=== PATIENT | female | born 1980 | race Caucasian/White ===

== ENCOUNTER 2016-10-18 08:46 | Emergency (ER) | payer MEDICAID ==
[~2016-10-18] VITALS: Wt 72.5 kg
[~2016-10-18 08:46] MED LIST: CALC500T99 PO; CIPR500T4 PO; DOCU-144 PO; FER325 PO; HYDR-3498 PO; HYDR-906 PO; IBUP-1542 PO; IBUP400T22 PO; METO-448 PO; ONDA4TAB14 PO; PRENAT PO
[2016-10-18] MEDS ORDERED: METF500T3 PO (09:22)
[2016-10-18] MEDS ORDERED: METO25TA7 PO (09:23)
[2016-10-18] MEDS ORDERED: KETOROLAC 30 MG INJ IV STA (09:24)
[2016-10-18] MEDS ORDERED: LABETALOL HCL 20MG INJ IV ONE (09:30)
[2016-10-18 10:00] LABS: ADD SCAN DIFF NO
--- NOTE | 2016-10-18 10:02 | RADRPT ---
PROCEDURE: XR CHEST AP PORTABLE CLINICAL INDICATION: Shortness of breath TECHNIQUE: Single frontal view of the chest COMPARISON: None. FINDINGS: The cardiomediastinal silhouette and pulmonary vasculature are normal. The lungs are clear. No consolidation, effusion, or pneumothorax. The osseous structures are unremarkable. IMPRESSION: No acute cardiopulmonary process. RPTAT:PP .Cedric Heath MD, MD Date Time Electronically viewed and signed by .Cedric Heath MD, on 10/18/2016 10:02 .V/
[2016-10-18 10:08] LABS: BASOPHILS % 0.3 % (0.0-2.0); EOSINOPHILS % 0.3 % (0.0-7.0); HEMATOCRIT 41.2 % (37.0-47.0); HEMOGLOBIN 13.9 g/dl (12.0-16.0); LYMPHOCYTES # 2.1 10^3/ul (0.8-2.9); MEAN CORPUSCULAR HEMOGLOBIN 29.3 pg (29.0-33.0); MEAN CORPUSCULAR HGB CONC 33.7 g/dl (32.0-37.0); MEAN CORPUSCULAR VOLUME 86.9 fl (82.0-101.0); MEAN PLATELET VOLUME 11.9 fl (7.4-10.4); MONOCYTE # 0.5 10^3/ul (0.3-0.9); MONOCYTES % 4.7 % (0.0-11.0); NEUTROPHIL # 8.8 10^3/ul (1.6-7.5); NEUTROPHILS % 76.2 % (39.0-77.0); PLATELET COUNT 342 10^3/UL (140-415); RED BLOOD COUNT 4.74 10^6/ul (4.20-5.40); RED CELL DISTRIBUTION WIDTH 12.7 % (11.5-14.5); WHITE BLOOD COUNT 11.5 10^3/ul (4.8-10.8)
[2016-10-18 10:19] LABS: ANION GAP 13 (8-16); BLOOD UREA NITROGEN 12 mg/dl (7-20); CALCIUM 9.6 mg/dl (8.4-10.2); CARBON DIOXIDE 23 mmol/L (21-31); CHLORIDE 104 mmol/L (97-110); CREATININE 0.45 mg/dl (0.44-1.00); GLUCOSE 151 mg/dl (70-220); SODIUM 136 mmol/L (135-144)
[2016-10-18 10:32] LABS: TROPONIN-I < 0.012 ng/ml (0.00-0.12)
[2016-10-18 10:49] VITALS: BP 146/84; PULSE 78; RESP 18
[2016-10-18] MEDS ORDERED: IBUP-1542 PO (10:54)
--- NOTE | 2016-10-18 10:55 | ERD ---
ER Documentation Chief Complaint Date/Time DATE: 10/18/16 TIME: 10:55 Chief Complaint SOB AND CHEST TIGHTNESS WITH HIGH BP SINCE YESTERDAY. NO NEURO DEF HPI Patient is a 36-year-old female with hypertension who presents saying "I think it is my blood pressure". She woke up in the middle the night and felt like she was having chest pain and felt "my heart was beating fast". She felt like her hands were shaking bilaterally. She took her blood pressure and it was 174/ 114. She took her blood pressure medicines. She felt short of breath as well. Upon review of old medical records the patient has multiple visits to the ER for various complaints. Her primary doctor is Dr. Newby. ROS All systems reviewed and are negative except as per history of present illness. Medications Home Meds Active Scripts Ibuprofen* (Motrin*) 600 Mg Tab, 600 MG PO Q8, #30 TAB Prov:VANDANA KHAN MD 10/18/16 Ondansetron (Ondansetron Odt) 4 Mg Tab.rapdis, 4 MG PO Q6H Y for NAUSEA AND/OR VOMITING, #10 TAB Prov:PARIS MALONE DO 03/03/16 Reported Medications Metoprolol Succinate* (Toprol XL*) 25 Mg Tab.sr.24h, 25 MG PO DAILY, #30 TAB 10/18/16 Metformin Hcl* (Metformin Hcl* ER) 500 Mg Tab.sr.24h, 500 MG PO DAILY, #30 TAB 10/18/16 Discontinued Reported Medications Docusate Sodium* (Colace*) 100 Mg Capsule, 100 MG PO DAILY, #30 CAP 08/07/15 Ferrous Sulfate* (Ferrous Sulfate*) 325 Mg Tabec, 325 MG PO DAILY, TAB 08/07/15 Calcium Carbonate ([id number]) 1 Tab Tablet, 1 TAB PO DAILY, TAB 08/07/15 Multivit/Min/Fol Ac/Iron/Pren* ( S*) 1 Tab Tab, 1 TAB PO DAILY, TAB 08/07/15 Discontinued Scripts Ibuprofen* (Motrin*) 400 Mg Tab, 400 MG PO Q8, #15 TAB Prov:PARIS MALONE DO 03/03/16 Hydrocodone/Acetaminophen ([place] 5-325 Tablet) 1 Each Tablet, 1 TAB PO Q6H Y for PAIN, #15 TAB Prov:PARIS MALONE DO 03/03/16 Ibuprofen* (Motrin*) 600 Mg Tab, 600 MG PO Q6, #20 TAB Prov:KWESI GRIFFITH MD 02/16/16 Ibuprofen* (Ibuprofen*) 400 Mg Tablet, 400 MG PO Q6H Y for PAIN, #30 TAB Prov:JONNY BATES MD 08/17/15 Hydrocodone Bit/Acetaminophen (Anexsia 5-325 Mg Tablet) 1 Tab Tab, 1 TAB PO Q4H Y for for pain, #1 TAB Prov:JONNY BATES MD 08/17/15 Ciprofloxacin Hcl* (Ciprofloxacin Hcl*) 500 Mg Tablet, 500 MG PO BID, #20 TAB Prov:JONNY BATES MD 08/17/15 Metoprolol Tartrate* (Lopressor*) 25 Mg Tab, 25 MG PO BID, #60 TAB Prov:JONNY BATES MD 08/17/15 Allergies Allergies: Coded Allergies: No Known Allergies (Verified Allergy, Unknown, 07/29/15) PMhx/Soc History of Surgery: Yes (appendectomy) Anesthesia Reaction: No Hx Neurological Disorder: No Hx Respiratory Disorders: Yes (bronchitis) Hx Cardiac Disorders: Yes (hypertension) Hx Psychiatric Problems: No Hx Miscellaneous Medical Probl: Yes (gestational diabetes, hernia) Hx Alcohol Use: No Hx Substance Use: No Hx Tobacco Use: No Smoking Status: Never smoker FmHx Family History: No coronary disease Physical Exam Vitals Vital Signs Date Time Temp Pulse Resp B/P Pulse Ox O2 Delivery O2 Flow Rate FiO2 10/18/16 10:49 78 18 146/84 98 Room Air 10/18/16 09:49 84 18 147/81 98 Room Air 10/18/16 09:18 90 22 156/110 98 Room Air 10/18/16 08:50 98.8 109 22 186/98 98 Physical Exam Const: No acute distress Head: Atraumatic Eyes: Normal Conjunctiva ENT: Normal External Ears, Nose and Mouth. Neck: Full range of motion..~ No meningismus. Resp: Clear to auscultation bilaterally Cardio: Regular rate and rhythm, no murmurs Abd: Soft, non tender, non distended. Normal bowel sounds Skin: No petechiae or rashes Back: No midline or flank tenderness Ext: No cyanosis, or edema Neur: Awake and alert Psych: Anxious Result Diagram: 10/18/1650 10/18/1650 Results 24 hrs Laboratory Tests Test 10/18/16 09:50 White Blood Count 11.510^3/ul Red Blood Count 4.7410^6/ul Hemoglobin 13.9g/dl Hematocrit 41.2% Mean Corpuscular Volume 86.9fl Mean Corpuscular Hemoglobin 29.3pg Mean Corpuscular Hemoglobin Concent 33.7g/dl Red Cell Distribution Width 12.7% Platelet Count 92915^3/UL Mean Platelet Volume 11.9fl Neutrophils % 76.2% Lymphocytes % 18.0% Monocytes % 4.7% Eosinophils % 0.3% Basophils % 0.3% Nucleated Red Blood Cells % 0.0/100WBC Neutrophils # 8.810^3/ul Lymphocytes # 2.110^3/ul Monocytes # 0.510^3/ul Eosinophils # 0.010^3/ul Basophils # 0.010^3/ul Nucleated Red Blood Cells # 0.010^3/ul Sodium Level 136mmol/L Potassium Level 4.0mmol/L Chloride Level 104mmol/L Carbon Dioxide Level 23mmol/L Anion Gap 13 Blood Urea Nitrogen 12mg/dl Creatinine 0.45mg/dl Glucose Level 151mg/dl Calcium Level 9.6mg/dl Troponin I < 0.012ng/ml Current Medications Medications (Trade) Dose Ordered Sig/Jessica Route PRN Reason Start Time Stop Time Status Last Admin Dose Admin Labetalol HCl (Labetalol) 20 mg ONCE ONCE IV 10/18/16 09:30 10/18/16 09:31 DC 10/18/16 09:27 Ketorolac Tromethamine (Toradol) 30 mg ONCE STAT IV 10/18/16 09:24 10/18/16 09:25 DC 10/18/16 09:26 Procedures/MDM EKG read by me: Rate/Rhythm: Regular rate and rhythm at a rate of 86 Intervals: Normal Impression: No evidence of ischemia or arrhythmia Chest x-ray negative per radiology. Patient is a 28-year-old female presents with chest pain and shortness of breath. Her only risk factor for acute coronary syndrome would be hypertension. She is otherwise well-appearing. Her EKG shows no signs of ischemia or arrhythmia. Chest x-ray shows no pneumonia or pneumothorax. Troponin was negative. At this point I doubt acute coronary syndrome, pneumonia , pneumothorax, pulmonary embolism, or aortic dissection. The patient was treated for high blood pressure with Cardene. She will be discharged home but will need close follow-up with her primary doctor within 24-48 hours. She can return sooner for any worsening symptoms. The patient understands the plan and is okay for discharge at this time. She was provided with a copy of her laboratory studies and x-ray report prior to discharge. Departure Diagnosis: Primary Impression: Hypertension Hypertension type: essential hypertension Qualified Code: I10 - Essential hypertension Additional Impressions: Shortness of breath Chest pain Chest pain type: unspecified Qualified Code: R07.9 - Chest pain, unspecified type Patient Instructions: High Blood Pressure (Hypertension), Chest Pain, Uncertain Cause Additional Instructions: Call your primary care doctor TOMORROW for an appointment during the next 1-2 days.See the doctor sooner or return here if your condition worsens before your appointment time. VANDANA KHAN MD October 18, 2016 10:55
== END 2016-10-18 11:03 | disposition home or self-care (01) ==
LOC: E/R 08:46
DX: I10 Essential (primary) hypertension (principal); R07.9 Chest pain, unspecified
CPT/HCPCS: 36415; 71010; 80048; 84484; 85025; 93005; 96374; 96375; J1885; Z7502; Z7610

== ENCOUNTER 2017-01-20 13:31 | Emergency (ER) | payer MEDICAID ==
[~2017-01-20] VITALS: Ht 157.5 cm; Wt 72.5 kg
[~2017-01-20 13:31] MED LIST changes: -CALC500T99 PO; -CIPR500T4 PO; -DOCU-144 PO; -FER325 PO; -HYDR-3498 PO; -HYDR-906 PO; -IBUP400T22 PO; +METF500T3 PO; -METO-448 PO; +METO25TA7 PO; -PRENAT PO
[2017-01-20 13:34] VITALS: Ht 157.5 cm; Wt 72.5 kg
[2017-01-20] MEDS ORDERED: LIDOCAINE/MYLANTA 40 ML BTL PO STA (14:47)
[2017-01-20] MEDS ORDERED: BELLADONNA/PHENOBARBITAL TAB PO STA (14:47)
--- NOTE | 2017-01-20 14:59 | ERD ---
ER Documentation Chief Complaint Date/Time DATE: 01/20/17 TIME: 14:54 Chief Complaint Complains of abdominal pain since Monday HPI Patient is a 28-year-old female with past medical history of gallstones, s/p appendectomy who presents to the emergency department for concerns of epigastric pain and bilateral lower quadrant pain 3 days. Patient states that she feels as if there is pain from her lower abdomen going up. Patient states she does feel "gaseous". Patient does admit to eating spicy and fried foods as well as taking NSAIDs. Denies any chest pain, shortness of breath, nausea, vomiting, left upper extremity pain or diaphoresis. Patient states she did initially feel constipated and not have a bowel movement for over 3 days. Patient states she took stool softeners as well as prune juice which did help her have a bowel movement earlier today. She does also report dysuria and urinary frequency. She denies any flank pain, hematuria, fever, chills. No recent travel. No sick contacts. ROS All systems reviewed and are negative except as per history of present illness. Medications Home Meds Active Scripts Nitrofurantoin Monohyd Macrocr* (Macrobid*) 100 Mg Capsr, 100 MG PO BID for 5 Days, CAP Prov:NESHA MATHEW PA-C 01/20/17 Ondansetron (Ondansetron Odt) 4 Mg Tab.rapdis, 4 MG PO Q6H Y for NAUSEA AND/OR VOMITING, #10 TAB Prov:NESHA MATHEW PA-C 01/20/17 Famotidine* (Pepcid*) 20 Mg Tablet, 20 MG PO BID for 30 Days, TAB Prov:NESHA MATHEW PA-C 01/20/17 Ibuprofen* (Motrin*) 600 Mg Tab, 600 MG PO Q8, #30 TAB Prov:VANDANA KHAN MD 10/18/16 Ondansetron (Ondansetron Odt) 4 Mg Tab.rapdis, 4 MG PO Q6H Y for NAUSEA AND/OR VOMITING, #10 TAB Prov:PARIS MALONE DO 03/03/16 Reported Medications Metoprolol Succinate* (Toprol XL*) 25 Mg Tab.sr.24h, 25 MG PO DAILY, #30 TAB 10/18/16 Metformin Hcl* (Metformin Hcl* ER) 500 Mg Tab.sr.24h, 500 MG PO DAILY, #30 TAB 10/18/16 Allergies Allergies: Coded Allergies: No Known Allergies (Verified Allergy, Unknown, 07/29/15) PMhx/Soc History of Surgery: Yes (appendectomy, 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 Appears in no acute distress. Speaking in full sentences HEAD: Normocephalic, atraumatic. EYES: Pupils are equally reactive bilaterally. EOMs grossly intact. No conjunctival erythema. ENT: Moist mucous membranes. No uvula deviation. No kissing tonsils. NECK: Supple. No meningismus. Normal range of motion of the neck. LUNG: Clear to auscultation bilaterally. No rhonchi, wheezing, rales or coarse breath sounds. HEART: Regular rate and rhythm. No murmurs, rubs or gallops. ABDOMEN:Soft and nondistended. Tender to palpation in the epigastric region, bilateral lower quadrants and suprapubic region. Appendectomy surgical scar noted in right lower quadrant. Positive bowel sounds in all four quadrants. No rebound tenderness, no guarding. (-) McBurney's point tenderness. No CVA tenderness. EXTREMITIES: Equal pulses bilaterally. No peripheral clubbing, cyanosis or edema. No unilateral leg swelling. NEUROLOGIC: Alert and oriented. Moving all four extremities without any difficulty. Normal speech. Steady gait. SKIN: Normal color. Warm and dry. No rashes or lesions. Result Diagram: 01/20/17 1500 01/20/17 1500 Results 24 hrs Laboratory Tests Test 01/20/17 14:40 01/20/17 15:00 Urine Color YELLOW Urine Clarity CLEAR Urine pH 6.0 Urine Specific [place] 1.020 Urine Ketones NEGATIVEmg/dL Urine Nitrite NEGATIVEmg/dL Urine Bilirubin NEGATIVEmg/dL Urine Urobilinogen NEGATIVEmg/dL Urine Leukocyte Esterase 1+Arlyn/ul Urine Microscopic RBC 1/HPF Urine Microscopic WBC 2/HPF Urine Squamous Epithelial Cells FEW/HPF Urine Bacteria FEW/HPF Urine Hemoglobin NEGATIVEmg/dL Urine Glucose NEGATIVEmg/dL Urine Total Protein NEGATIVEmg/dl White Blood Count 9.310^3/ul Red Blood Count 4.3910^6/ul Hemoglobin 12.6g/dl Hematocrit 38.7% Mean Corpuscular Volume 88.2fl Mean Corpuscular Hemoglobin 28.7pg Mean Corpuscular Hemoglobin Concent 32.6g/dl Red Cell Distribution Width 12.9% Platelet Count 20923^3/UL Mean Platelet Volume 11.1fl Neutrophils % 59.6% Lymphocytes % 27.7% Monocytes % 8.8% Eosinophils % 3.4% Basophils % 0.2% Nucleated Red Blood Cells % 0.0/100WBC Neutrophils # 5.510^3/ul Lymphocytes # 2.610^3/ul Monocytes # 0.810^3/ul Eosinophils # 0.310^3/ul Basophils # 0.010^3/ul Nucleated Red Blood Cells # 0.010^3/ul Sodium Level 141mmol/L Potassium Level 4.3mmol/L Chloride Level 99mmol/L Carbon Dioxide Level 27mmol/L Anion Gap 19 Blood Urea Nitrogen 12mg/dl Creatinine 0.52mg/dl Glucose Level 100mg/dl Calcium Level 9.3mg/dl Total Bilirubin 0.2mg/dl Direct Bilirubin 0.00mg/dl Indirect Bilirubin 0.2mg/dl Aspartate Amino Transf (AST/SGOT) 19IU/L Alanine Aminotransferase (ALT/SGPT) 28IU/L Alkaline Phosphatase 110IU/L Troponin I < 0.012ng/ml Total Protein 7.8g/dl Albumin 4.4g/dl Globulin 3.40g/dl Albumin/Globulin Ratio 1.29 Lipase 71U/L Current Medications Medications (Trade) Dose Ordered Sig/Jessica Route PRN Reason Start Time Stop Time Status Last Admin Dose Admin Miscellaneous Medication (Gi Cocktail (2)) 40 ml ONCE STAT PO 01/20/17 14:47 01/20/17 14:48 DC 01/20/17 15:04 Belladonna/ Phenobarbital () 2 tab ONCE STAT PO 01/20/17 14:47 01/20/17 14:48 DC 01/20/17 15:04 Procedures/MDM ED COURSE: The patient was stable throughout ED course. I kept the patient and/or family informed of laboratory and diagnostic imaging results throughout the ED course. DIAGNOSTIC IMAGING: Read by radiologist. DIAGNOSTIC IMAGING REPORT Patient: VASU ZELAYA : 1980 Age: 36 Sex: F MR #: [id number] DOS: 01/20/17 1447 Ordering MD: NESHA MATHEW PA-C Location: [facility] Room/Bed: PROCEDURE: US Abdomen (right upper quadrant). CLINICAL INDICATION: Right upper quadrant pain TECHNIQUE: Multiple real-time longitudinal and transverse images of the right upper quadrant of the abdomen were acquired utilizing a curved array transducer. Images were reviewed on a high-resolution PACS workstation. COMPARISON: Abdominal ultrasound 03/03/2016 FINDINGS: The liver is normal in size and echogenicity without focal mass or intrahepatic biliary dilatation. The liver measures 13.4 cm at the right midclavicular line. There is normal hepatopedal flow within the main portal vein. The main portal vein velocity measures 21 cm/sec. The gallbladder is again seen to contain multiple shadowing gallstones. The gallbladder wall is minimally thickened, measuring approximately 3 mm in thickness (previously approximate 2.2 mm). No pericholecystic fluid is seen. No intra or extrahepatic biliary dilatation is seen. The common bile duct measures 2.7 mm at the pepe. The visualized portions of the pancreas are unremarkable with obscuration of the tail of the pancreas. No free fluid is identified. The right kidney measures 10.4 cm in length. There is normal echogenicity within the right kidney. Blood flow is demonstrated to the right kidney by color Doppler. There is no right perinephric fluid collection. No hydronephrosis, mass, or shadow calculus is seen on the right. IMPRESSION: Cholelithiasis with minimal gallbladder wall thickening, not significantly changed compared to 03/03/2016. RPTAT: QQ Physician Donna Date Time Electronically viewed and signed by Physician Donna on 01/20/2017 16: 05 RC/ CC: NESHA MATHEW PA-C MEDICATIONS GIVEN: GI cocktail Patient tolerated medication well with no adverse reactions. Patient reported improvement in pain. MEDICAL DECISION MAKING: This is a 36 year-old female presents emergency department with concerns of epigastric pain, increased gassiness, bilateral lower quadrant pain and dysuria 3 days. Vital signs were reviewed. Patient is afebrile. CBC showed no evidence of systemic infection or severe anemia. CMP showed no evidence of electrolyte abnormalities, severe acidosis, alkalosis, renal failure, or liver disease.Lipase showed no evidence of acute pancreatitis. Urine test was negative. Urine analysis showed 1+ leukocyte esterase. Gallbladder ultrasound showed cholelithiasis with minimal gallbladder wall thickening, not significantly changed compared to 03-03-2016. Patient did report significant improvement in her pain after receiving the GI cocktail. Patient understands I am unable to rule out any ulcers at this time. At this time patient presentation is most consistent with epigastric pain, cholelithiasis and UTI. Low suspicion for ACS, AAA, mesenteric ischemia, lower lobe pneumonia, DKA, bowel perforation, bowel obstruction, cholecystitis, choledocholithiasis, ascending cholangitis, pancreatitis, splenic rupture, diverticulitis, pyelonephritis, nephrolithiasis, appendicitis, constipation, , ectopic . PRESCRIPTIONS: Pepcid, Macrobid DISCHARGE: At this time, patient is stable for discharge and outpatient management. She was provided with a copy of all imaging and blood work obtained today. Surgery referral information provided for elective cholecystectomy if the patient's pain persists. I have instructed the patient to follow-up with his/her primary care physician in 1-2 days. I have instructed the patient to promptly return to the ER at any time for any new or worsening symptoms including increased pain, nausea, vomiting, diarrhea, fever, weakness or LOC. The patient and/or family expressed understanding of and agreement with this plan. All questions were answered. Home care instructions were provided. Patients blood pressure was elevated (>120/80) but appears stable without evidence of hypertensive emergency, hypertensive urgency or end-organ failure. I had discussion with the patient about the risks of hypertension. I have advised the patient to follow up with his/her primary care physician for outpatient monitoring and treatment for hypertension in 2-3 days. I have instructed the patient to return to the ER for any new or worsening symptoms including chest pain, shortness of breath, headache, blurred vision, confusion, nausea, vomiting or LOC. Disclaimer: Inadvertent spelling and grammatical errors are likely due to EHR/ dictation software use and do not reflect on the overall quality of patient care. Also, please note that the electronic time recorded on this note does not necessarily reflect the actual time of the patient encounter. Departure Diagnosis: Primary Impression: Epigastric pain Additional Impressions: Cholelithiasis Cholelithiasis location: other site Biliary obstruction: without biliary obstruction Qualified Code: K80.80 - Biliary calculus of other site without obstruction UTI (urinary tract infection) Urinary tract infection type: site unspecified Hematuria presence: without hematuria Qualified Code: N39.0 - Urinary tract infection without hematuria, site unspecified Condition: Stable Patient Instructions: Epigastric Pain (Uncertain Cause) Referrals: MARLENE VALENZUELA MD (PCP) Julian MACARIO PHILIP MD DEL JUNCO, TIRSO MD FARID,CHELSEA CALVILLO,ERICKA GARBER MD, M.D. [facility] MOLDING LINE ASSISTANT REFERRAL LIST Additional Instructions: Call your primary care doctor TOMORROW for an appointment during the next 1-2 days.See the doctor sooner or return here if your condition worsens before your appointment time. Follow-up with a general surgeon for your ongoing gallstones. You may need gallbladder removal surgery if your pain persists. NESHA MATHEW PA-C Jan 20, 2017 14:59
[2017-01-20 15:23] LABS: BASOPHILS % 0.2 % (0.0-2.0); EOSINOPHILS # 0.3 10^3/ul (0.0-0.5); EOSINOPHILS % 3.4 % (0.0-7.0); HEMATOCRIT 38.7 % (37.0-47.0); HEMOGLOBIN 12.6 g/dl (12.0-16.0); LYMPHOCYTES # 2.6 10^3/ul (0.8-2.9); LYMPHOCYTES % 27.7 % (15.0-51.0); MEAN CORPUSCULAR HEMOGLOBIN 28.7 pg (29.0-33.0); MEAN CORPUSCULAR HGB CONC 32.6 g/dl (32.0-37.0); MEAN CORPUSCULAR VOLUME 88.2 fl (82.0-101.0); MEAN PLATELET VOLUME 11.1 fl (7.4-10.4); MONOCYTE # 0.8 10^3/ul (0.3-0.9); MONOCYTES % 8.8 % (0.0-11.0); NEUTROPHIL # 5.5 10^3/ul (1.6-7.5); NEUTROPHILS % 59.6 % (39.0-77.0); PLATELET COUNT 323 10^3/UL (140-415); RED BLOOD COUNT 4.39 10^6/ul (4.20-5.40); RED CELL DISTRIBUTION WIDTH 12.9 % (11.5-14.5); WHITE BLOOD COUNT 9.3 10^3/ul (4.8-10.8)
[2017-01-20 15:33] LABS: ADD UMIC YES; UR ASCORBIC ACID 40 mg/dL (NEGATIVE); UR BACTERIA FEW /HPF (NONE SEEN); UR BILIRUBIN (Dip) NEGATIVE (NEGATIVE); UR BLOOD (Dip) NEGATIVE (NEGATIVE); UR CLARITY CLEAR (CLEAR); UR COLOR YELLOW (YELLOW); UR GLUCOSE (Dip) NEGATIVE (NEGATIVE); UR KETONES (Dip) NEGATIVE (NEGATIVE); UR LEUKOCYTE ESTERASE (Dip) 1+ Leu/ul (NEGATIVE); UR NITRITE (Dip) NEGATIVE (NEGATIVE); UR RBC 1 /HPF (0-5); UR SQUAMOUS EPITHELIAL CELL FEW /HPF (FEW); UR TOTAL PROTEIN (Dip) NEGATIVE (NEGATIVE); UR UROBILINOGEN (Dip) NEGATIVE (NEGATIVE)
[2017-01-20 15:47] LABS: ALANINE AMINOTRANSFERASE 28 IU/L (13-69); ALBUMIN 4.4 g/dl (3.3-4.9); ALBUMIN/GLOBULIN RATIO 1.29; ALKALINE PHOSPHATASE 110 IU/L (42-121); ANION GAP 19 (8-16); ASPARTATE AMINO TRANSFERASE 19 IU/L (15-46); BILIRUBIN,INDIRECT 0.2 mg/dl (0-1.1); BILIRUBIN,TOTAL 0.2 mg/dl (0.2-1.3); BLOOD UREA NITROGEN 12 mg/dl (7-20); CALCIUM 9.3 mg/dl (8.4-10.2); CARBON DIOXIDE 27 mmol/L (21-31); CHLORIDE 99 mmol/L (97-110); CREATININE 0.52 mg/dl (0.44-1.00); GLUCOSE 100 mg/dl (70-220); POTASSIUM 4.3 mmol/L (3.5-5.1); SODIUM 141 mmol/L (135-144); TOTAL PROTEIN 7.8 g/dl (6.1-8.1)
[2017-01-20 16:01] LABS: TROPONIN-I < 0.012 ng/ml (0.00-0.12)
--- NOTE | 2017-01-20 16:05 | RADRPT ---
PROCEDURE: US Abdomen (right upper quadrant). CLINICAL INDICATION: Right upper quadrant pain TECHNIQUE: Multiple real-time longitudinal and transverse images of the right upper quadrant of th e abdomen were acquired utilizing a curved array transducer. Images were reviewed on a high-resoluti on PACS workstation. COMPARISON: Abdominal ultrasound 03/03/2016 FINDINGS: The liver is normal in size and echogenicity without focal mass or intrahepatic biliary dilatation. The liver measures 13.4 cm at the right midclavicular line. There is normal hepatopedal flow within the main portal vein. The main portal vein velocity measures 21 cm/sec. The gallbladder is again seen to contain multiple shadowing gallstones. The gallbladder wall is mini pili thickened, measuring approximately 3 mm in thickness (previously approximate 2.2 mm). No peric holecystic fluid is seen. No intra or extrahepatic biliary dilatation is seen. The common bile gianna t measures 2.7 mm at the pepe. The visualized portions of the pancreas are unremarkable with obscuration of the tail of the pancrea s. No free fluid is identified. The right kidney measures 10.4 cm in length. There is normal echogenicity within the right kidney. Blood flow is demonstrated to the right kidney by color Doppler. There is no right perinephric fluid collection. No hydronephrosis, mass, or shadow calculus is seen on the right. IMPRESSION: Cholelithiasis with minimal gallbladder wall thickening, not significantly changed compared to 03/03. RPTAT: QQ Physician Donna Date Time Electronically viewed and signed by Physician Donna on 01/20/2017 16:05 PAULETTE/
[2017-01-20] MEDS ORDERED: FAMO-96 PO (16:33)
[2017-01-20] MEDS ORDERED: ONDA4TAB14 PO (16:34)
[2017-01-20] MEDS ORDERED: NITR-58 PO (16:34)
== END 2017-01-20 16:52 | disposition home or self-care (01) ==
LOC: FTE 13:31
DX: R10.13 Epigastric pain (principal); K80.80 Other cholelithiasis without obstruction; N39.0 Urinary tract infection, site not specified; I10 Essential (primary) hypertension; Z79.84 Long term (current) use of oral hypoglycemic drugs
CPT/HCPCS: 36415; 76705; 80053; 81001; 83690; 84484; 85025; Z7502; Z7610

== ENCOUNTER 2017-02-20 16:32 | Emergency (ER) | payer MEDICAID ==
[~2017-02-20] VITALS: Ht 165.1 cm; Wt 71.5 kg
[~2017-02-20 16:32] MED LIST changes: +FAMO-96 PO; +NITR-58 PO
[2017-02-20 16:47] VITALS: Ht 165.1 cm; Wt 71.5 kg
[2017-02-20] MEDS ORDERED: SOD CHLORIDE 0.9% 1,000 ML IV STA (17:15)
[2017-02-20] MEDS ORDERED: KETOROLAC 30 MG INJ IV STA (17:15)
[2017-02-20] MEDS ORDERED: ONDANSETRON 4 MG INJ IV STA (17:15)
--- NOTE | 2017-02-20 18:00 | RADRPT ---
PROCEDURE: US Pelvis CLINICAL INDICATION: right sided pelvic pain TECHNIQUE: Multiple sonographic images of the pelvis were obtained utilizing a transabdominal and endovaginal technique. The images were reviewed on a PACS workstation. COMPARISON: None. LMP: 01/20/2017 FINDINGS: The uterus measures 8.0 x 4.0 x 6.2 cm. The endometrial echo complex measures 15 mm in thickness. Several sub-centimeter Nabothian cysts are identified. The right ovary measures 3.5 x 2.6 x 2.6 cm. The left ovary measures 3.1 x 2.1 x 2.2 cm. There is no rmal vascular flow in both ovaries. There is a 1.1 cm mildly irregular cystic lesion in the right ovary with low level internal echoes w hich may be a ruptured hemorrhagic/corpus luteal cyst. There is trace pelvic free fluid. IMPRESSION: 1.1 cm mildly irregular complex cystic lesion in the right ovary may be a ruptured hemorrhagic/corpu s luteal cyst. Otherwise, unremarkable pelvic ultrasound. RPTAT: EE Physician Radha Date Time Electronically viewed and signed by Physician Radha on 02/20/2017 18:00 /
[2017-02-20 18:18] LABS: BASOPHILS % 0.3 % (0.0-2.0); EOSINOPHILS # 0.2 10^3/ul (0.0-0.5); EOSINOPHILS % 1.8 % (0.0-7.0); HEMATOCRIT 39.5 % (37.0-47.0); HEMOGLOBIN 12.9 g/dl (12.0-16.0); LYMPHOCYTES # 2.6 10^3/ul (0.8-2.9); LYMPHOCYTES % 20.4 % (15.0-51.0); MEAN CORPUSCULAR HEMOGLOBIN 28.5 pg (29.0-33.0); MEAN CORPUSCULAR HGB CONC 32.7 g/dl (32.0-37.0); MEAN CORPUSCULAR VOLUME 87.4 fl (82.0-101.0); MEAN PLATELET VOLUME 10.8 fl (7.4-10.4); MONOCYTE # 0.8 10^3/ul (0.3-0.9); MONOCYTES % 6.1 % (0.0-11.0); PLATELET COUNT 323 10^3/UL (140-415); RED BLOOD COUNT 4.52 10^6/ul (4.20-5.40); RED CELL DISTRIBUTION WIDTH 12.9 % (11.5-14.5); WHITE BLOOD COUNT 12.7 10^3/ul (4.8-10.8)
[2017-02-20 18:29] LABS: ADD UMIC YES; UR ASCORBIC ACID 40 mg/dL (NEGATIVE); UR BILIRUBIN (Dip) NEGATIVE (NEGATIVE); UR BLOOD (Dip) NEGATIVE (NEGATIVE); UR CLARITY SLIGHTLY CLOUDY (CLEAR); UR COLOR YELLOW (YELLOW); UR GLUCOSE (Dip) NEGATIVE (NEGATIVE); UR KETONES (Dip) NEGATIVE (NEGATIVE); UR LEUKOCYTE ESTERASE (Dip) TRACE Leu/ul (NEGATIVE); UR MUCUS FEW /HPF (NONE SEEN); UR NITRITE (Dip) NEGATIVE (NEGATIVE); UR RBC 5 /HPF (0-5); UR SPECIFIC GRAVITY (Dip) 1.021 (1.003-1.030); UR SQUAMOUS EPITHELIAL CELL FEW /HPF (FEW); UR TOTAL PROTEIN (Dip) 1+ mg/dl (NEGATIVE); UR UROBILINOGEN (Dip) NEGATIVE (NEGATIVE)
[2017-02-20 18:34] LABS: ALBUMIN 4.3 g/dl (3.3-4.9); ALBUMIN/GLOBULIN RATIO 1.38; BILIRUBIN,INDIRECT 0.3 mg/dl (0-1.1); BILIRUBIN,TOTAL 0.3 mg/dl (0.2-1.3); CALCIUM 10.2 mg/dl (8.4-10.2); CREATININE 0.52 mg/dl (0.44-1.00); POTASSIUM 3.8 mmol/L (3.5-5.1); TOTAL PROTEIN 7.4 g/dl (6.1-8.1)
--- NOTE | 2017-02-20 18:58 | RADRPT ---
PROCEDURE: CT abdomen and pelvis without IV contrast. CLINICAL INDICATION: Abdominal pain TECHNIQUE: CT scan of the abdomen and pelvis without contrast was performed on the General Specific volumetric [address] scanner. The patient was scanned without intravenous contrast. Coronal and sagittal refo rmatted images were obtained from the axial source images. The CTDI vol is 11.42 mGy and the DLP is 637.83 mGy-cm. One or more of the following dose reduction techniques were used: Automated exposure control. Adjustment of the mA and/or kV according to patient size. Use of iterative reconstruction technique. COMPARISON: 02/16/2016 FINDINGS: CT abdomen: The lung bases are clear. The heart size is not enlarged and is without pericardial thickening or e ffusion. The liver is normal in size and is without focal mass or intrahepatic biliary dilatation. Fatty infi ltration of the liver is seen. The spleen is normal in size and homogeneous in density. The stomach is grossly unremarkable. The pancreas as visualized is normal. Multiple gallstones are seen. No common bile duct dilatation is seen. The adrenal glands are symmetric and normal. The kidneys are s ymmetrically unremarkable as well. No renal calculus or obstructive uropathy or mass lesion is seen . The aorta is of normal in caliber. There is no retroperitoneal lymphadenopathy. The pepe hepatis region is clear. The large bowel is stool-filled. The small and large bowel and mesentery, as visua lized, are otherwise unremarkable. The normal appendix is identified. A right ventral hernia is once again seen which is fat containing and is stable in size. CT pelvis: The pelvic organs are normal. The pelvic sidewalls and inguinal regions are clear. No pelvic mass, lymphadenopathy, or free fluid is seen. No acute inflammation is seen. The urinary bladder is wit hin normal limits. The surrounding osseous structures are unremarkable. No osteolytic or osteoblastic lesion is detect ed. IMPRESSION: 1. No acute pathology in the abdomen and pelvis. 2. Cholelithiasis again seen. 3. Stool filled large bowel. 4. Fatty infiltration of the liver. RPTAT: HPNM Physician Kayli Date Time Electronically viewed and signed by Jigar Craig Physician on 02/20/2017 18:58 /
[2017-02-20] MEDS ORDERED: HYDR-906 PO (19:33)
--- NOTE | 2017-02-20 19:42 | ERD ---
ER Documentation Chief Complaint Date/Time DATE: 02/20/17 TIME: 19:37 Chief Complaint RT LOWER PELVIC PAIN RADIATING TO GROIN AND LEG TODAY, HAS A HERNIA HPI This is a 37-year-old female presents to the ER with right lower pelvic pain which radiates into her right groin and vagina. Patient states that she had an appendectomy a year and a half ago and soon after was diagnosed with a hernia. Patient states that pain is severe and constant and it is worse whenever she walks. Patient denies any nausea or vomiting. She denies any fevers or chills. She denies urinary frequency or dysuria. She denies any vaginal discharge. Patient tried taking Tylenol for her pain, however it did not work. ROS 12 point review of systems was done, all negative except per HPI. Medications Home Meds Active Scripts Hydrocodone/Acetaminophen ([place] 5-325 Tablet) 1 Each Tablet, 1 TAB PO Q6H Y for PAIN, #20 TAB Prov:JERICA MAJOR 02/20/17 Nitrofurantoin Monohyd Macrocr* (Macrobid*) 100 Mg Capsr, 100 MG PO BID for 5 Days, CAP Prov:NESHA MATHEW PA-C 01/20/17 Ondansetron (Ondansetron Odt) 4 Mg Tab.rapdis, 4 MG PO Q6H Y for NAUSEA AND/OR VOMITING, #10 TAB Prov:NESHA MATHEW PA-C 01/20/17 Famotidine* (Pepcid*) 20 Mg Tablet, 20 MG PO BID for 30 Days, TAB Prov:NESHA MATHEW PA-C 01/20/17 Ibuprofen* (Motrin*) 600 Mg Tab, 600 MG PO Q8, #30 TAB Prov:VANDANA KHAN MD 10/18/16 Ondansetron (Ondansetron Odt) 4 Mg Tab.rapdis, 4 MG PO Q6H Y for NAUSEA AND/OR VOMITING, #10 TAB Prov:PARIS MALONE DO 03/03/16 Reported Medications Metoprolol Succinate* (Toprol XL*) 25 Mg Tab.sr.24h, 25 MG PO DAILY, #30 TAB 10/18/16 Metformin Hcl* (Metformin Hcl* ER) 500 Mg Tab.sr.24h, 500 MG PO DAILY, #30 TAB 10/18/16 Allergies Allergies: Coded Allergies: No Known Allergies (Verified Allergy, Unknown, 07/29/15) PMhx/Soc History of Surgery: Yes (appendectomy, 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 HEENT: Atraumatic. CHEST: Clear to auscultation bilaterally. There are no rales, wheezes or rhonchi. HEART: Regular rate and rhythm. No murmurs, clicks, rubs or gallops. ABDOMEN: Soft, nontender and nondistended. Good bowel sounds. No rebound or guarding. No gross peritonitis. No gross organomegaly or masses. No Steward sign or McBurney point tenderness. Patient is tender to palpation pelvic region BACK: No midline or flank tenderness. NEURO: Alert and oriented. Result Diagram: 02/20/17180902/20/171809 Results 24 hrs Laboratory Tests Test 02/20/17 17:15 02/20/17 18:10 Urine Color YELLOW Urine Clarity SLIGHTLY CLOUDY Urine pH 5.0 Urine Specific [place] 1.021 Urine Ketones NEGATIVEmg/dL Urine Nitrite NEGATIVEmg/dL Urine Bilirubin NEGATIVEmg/dL Urine Urobilinogen NEGATIVEmg/dL Urine Leukocyte Esterase TRACELeu/ul Urine Microscopic RBC 5/HPF Urine Microscopic WBC 2/HPF Urine Squamous Epithelial Cells FEW/HPF Urine Mucus FEW/HPF Urine Hemoglobin NEGATIVEmg/dL Urine Glucose NEGATIVEmg/dL Urine Total Protein 1+mg/dl White Blood Count 12.710^3/ul Red Blood Count 4.5210^6/ul Hemoglobin 12.9g/dl Hematocrit 39.5% Mean Corpuscular Volume 87.4fl Mean Corpuscular Hemoglobin 28.5pg Mean Corpuscular Hemoglobin Concent 32.7g/dl Red Cell Distribution Width 12.9% Platelet Count 14138^3/UL Mean Platelet Volume 10.8fl Neutrophils % 71.0% Lymphocytes % 20.4% Monocytes % 6.1% Eosinophils % 1.8% Basophils % 0.3% Nucleated Red Blood Cells % 0.0/100WBC Neutrophils # (Manual) 9.010^3/ul Lymphocytes # 2.610^3/ul Monocytes # 0.810^3/ul Eosinophils # 0.210^3/ul Basophils # 0.010^3/ul Nucleated Red Blood Cells # 0.010^3/ul Sodium Level 140mmol/L Potassium Level 3.8mmol/L Chloride Level 105mmol/L Carbon Dioxide Level 27mmol/L Anion Gap 12 Blood Urea Nitrogen 14mg/dl Creatinine 0.52mg/dl Glucose Level 117mg/dl Calcium Level 10.2mg/dl Total Bilirubin 0.3mg/dl Direct Bilirubin 0.00mg/dl Indirect Bilirubin 0.3mg/dl Aspartate Amino Transf (AST/SGOT) 18IU/L Alanine Aminotransferase (ALT/SGPT) 21IU/L Alkaline Phosphatase 103IU/L Total Protein 7.4g/dl Albumin 4.3g/dl Globulin 3.10g/dl Albumin/Globulin Ratio 1.38 Lipase 75U/L Current Medications Medications (Trade) Dose Ordered Sig/Jessica Route PRN Reason Start Time Stop Time Status Last Admin Dose Admin Sodium Chloride (NS) 1,000 ml @ 1,000 mls/hr Q1H STAT IV 02/20/17 17:15 02/20/17 18:14 DC 02/20/17 18:12 Ondansetron HCl (Zofran Inj) 4 mg ONCE STAT IV 02/20/17 17:15 02/20/17 17:17 DC 02/20/17 18:11 Ketorolac Tromethamine (Toradol) 30 mg ONCE STAT IV 02/20/17 17:15 02/20/17 17:17 DC 02/20/17 18:11 [id number] [place], [place] [address] Radiology Main Line: [phone] DIAGNOSTIC IMAGING REPORT Patient: VASU ZELAYA : 1980 Age: 37 Sex: F MR #: [id number] DOS: 02/20/17 1715 Ordering MD: JERICA MAJOR PA-C Location: [facility] Room/Bed: PROCEDURE: CT abdomen and pelvis without IV contrast. CLINICAL INDICATION: Abdominal pain TECHNIQUE: CT scan of the abdomen and pelvis without contrast was performed on the [employer] volumetric [address] scanner. The patient was scanned without intravenous contrast. Coronal and sagittal reformatted images were obtained from the axial source images. The CTDI vol is 11.42 mGy and the DLP is 637.83 mGy-cm. One or more of the following dose reduction techniques were used: Automated exposure control. Adjustment of the mA and/or kV according to patient size. Use of iterative reconstruction technique. COMPARISON: 02/16/2016 FINDINGS: CT abdomen: The lung bases are clear. The heart size is not enlarged and is without pericardial thickening or effusion. The liver is normal in size and is without focal mass or intrahepatic biliary dilatation. Fatty infiltration of the liver is seen. The spleen is normal in size and homogeneous in density. The stomach is grossly unremarkable. The pancreas as visualized is normal. Multiple gallstones are seen. No common bile duct dilatation is seen. The adrenal glands are symmetric and normal. The kidneys are symmetrically unremarkable as well. No renal calculus or obstructive uropathy or mass lesion is seen. The aorta is of normal in caliber. There is no retroperitoneal lymphadenopathy. The pepe hepatis region is clear. The large bowel is stool- filled. The small and large bowel and mesentery, as visualized, are otherwise unremarkable. The normal appendix is identified. A right ventral hernia is once again seen which is fat containing and is stable in size. CT pelvis: The pelvic organs are normal. The pelvic sidewalls and inguinal regions are clear. No pelvic mass, lymphadenopathy, or free fluid is seen. No acute inflammation is seen. The urinary bladder is within normal limits. The surrounding osseous structures are unremarkable. No osteolytic or osteoblastic lesion is detected. IMPRESSION: 1. No acute pathology in the abdomen and pelvis. 2. Cholelithiasis again seen. 3. Stool filled large bowel. 4. Fatty infiltration of the liver. RPTAT: HPNM Physician Kayli Date Time Electronically viewed and signed by Jigar Craig Physician on 02/20/2017 18 :58 / CC: JERICA MAJOR [place] [id number] Radiology Main Line: [phone] DIAGNOSTIC IMAGING REPORT Patient: VASU ZELAYA : 1980 Age: 37 Sex: F MR #: [id number] DOS: 02/20/17 0000 Ordering MD: JERICA MAJOR PA-C Location: [facility] Room/Bed: PROCEDURE: US Pelvis CLINICAL INDICATION: right sided pelvic pain TECHNIQUE: Multiple sonographic images of the pelvis were obtained utilizing a transabdominal and endovaginal technique. The images were reviewed on a PACS workstation. COMPARISON: None. LMP: 01/20/2017 FINDINGS: The uterus measures 8.0 x 4.0 x 6.2 cm. The endometrial echo complex measures 15 mm in thickness. Several sub-centimeter Nabothian cysts are identified. The right ovary measures 3.5 x 2.6 x 2.6 cm. The left ovary measures 3.1 x 2.1 x 2.2 cm. There is normal vascular flow in both ovaries. There is a 1.1 cm mildly irregular cystic lesion in the right ovary with low level internal echoes which may be a ruptured hemorrhagic/corpus luteal cyst. There is trace pelvic free fluid. IMPRESSION: 1.1 cm mildly irregular complex cystic lesion in the right ovary may be a ruptured hemorrhagic/corpus luteal cyst. Otherwise, unremarkable pelvic ultrasound. RPTAT: EE Physician Radha Date Time Electronically viewed and signed by Kam Akbar Physician on 02/20/2017 18:00 RA/ CC: JERICA MAJOR Procedures/MDM Differential diagnosis includes but is not limited to appendicitis, hernia, UTI , constipation, ectopic , ovarian torsion, PID, Mittelschmerz, fibroid. This is a 37-year-old female presents to the ER with right-sided pelvic pain. At this time suspicion for incarcerated or strangulate hernia is low, hernia was not on physical examination. Patient did have a small cyst in the right ovary, which may or may not be causing pain. For appendicitis is low , patient already had her appendix taken out. There was no evidence of ovarian dysfunction. Patient does have gallstones, however this may be causing right lower pelvic pain. Patient will be sent home with [place]. She is to follow-up with her primary care doctor within 1-2 days return to ER sooner if symptoms worsen shared with the patient she understands and agrees with plan. Departure Diagnosis: Primary Impression: Pelvic pain Condition: Stable Patient Instructions: Pelvic Pain, Unknown Cause Additional Instructions: Call your primary care doctor TOMORROW for an appointment during the next 1-2 days.See the doctor sooner or return here if your condition worsens before your appointment time. JERICA MAJOR Feb 20, 2017 19:42
[2017-02-20] MEDS ORDERED: TYL500 PO (20:28)
[2017-02-20] MEDS ORDERED: TRAM50TA2 PO (20:28)
[2017-02-20 21:04] VITALS: TEMP 98.8
[2017-02-20 21:59] VITALS: PULSE 75
[2017-02-20 22:49] VITALS: BP 127/80; RESP 22
== END 2017-02-20 22:10 | disposition home or self-care (01) ==
LOC: FTE 16:32
DX: R10.2 Pelvic and perineal pain (principal); I10 Essential (primary) hypertension; Z79.84 Long term (current) use of oral hypoglycemic drugs
CPT/HCPCS: 36415; 74176; 76830; 76856; 80053; 81001; 83690; 85025; 96374; 96375; J1885; J2405; J7030; Z7502; Z7610

== ENCOUNTER 2017-07-04 12:51 | Emergency (ER) | END 2017-07-04 13:37 | disposition home or self-care (01) ==

== ENCOUNTER 2017-12-20 16:31 | Emergency (ER) | END 2017-12-20 22:45 | disposition home or self-care (01) ==

== ENCOUNTER 2018-04-01 13:03 | Emergency (ER) | END 2018-04-01 15:32 | disposition home or self-care (01) ==